=== PATIENT | male | born 1975 | race African-American/Black ===

== ENCOUNTER 2018-01-12 13:46 | Emergency (ER) | payer MEDICAID, OTHER ==
[~2018-01-12] VITALS: Ht 172.7 cm; Wt 96.2 kg
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
[2018-01-12 15:25] VITALS: BP 127/83
[2018-01-12] MEDS ORDERED: IBUPROFEN600 MG ORAL (15:26)
[2018-01-12] MEDS ORDERED: ROBAXIN500 MG PO (15:26)
[2018-01-12 15:29] VITALS: BP 127/83
--- NOTE | 2018-01-12 16:34 | Diagnostic Imaging Report ---
Indication: Pain Technique: 3 views right hand Comparison: none Findings: No acute fractures. No dislocations. The joint spaces are preserved. 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
--- NOTE | 2018-01-12 16:36 | Diagnostic Imaging Report ---
Indication: Reason For Exam: PAIN Technique: 3 views of the right middle finger Comparison: none Findings: No acute fractures. No dislocations. The joint spaces are preserved. Impression: Negative
== END 2018-01-12 15:29 | disposition home or self-care (01) ==
LOC: EMR 14:26
DX: M62.830 Muscle spasm of back (principal); S80.02XA Contusion of left knee, initial encounter; S80.01XA Contusion of right knee, initial encounter; V43.52XA Car driver injured in collision with other type car in traffic accident, initial encounter; Y92.410 Unspecified street and highway as the place of occurrence of the external cause; S63.601A Unspecified sprain of right thumb, initial encounter; S63.612A Unspecified sprain of right middle finger, initial encounter; S63.614A Unspecified sprain of right ring finger, initial encounter; X58.XXXA Exposure to other specified factors, initial encounter; Y92.9 Unspecified place or not applicable
CPT/HCPCS: 99284

== ENCOUNTER 2019-01-03 10:18 | Emergency (ER) | payer OTHER ==
[~2019-01-03] VITALS: Ht 172.7 cm; Wt 88.5 kg
[~2019-01-03 10:18] MED LIST: IBUPROFEN600 MG ORAL; ROBAXIN500 MG PO
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
[2019-01-03 10:38] VITALS: BP 141/88
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
[2019-01-03] MEDS ORDERED: IBUPROFEN600 MG ORAL (11:04)
[2019-01-03] MEDS ORDERED: ROBAXIN-750750 MG PO (11:04)
--- NOTE | 2019-01-03 11:25 | NUR ---
ER DISCHARGE NOTE: Patient is cleared to be discharged per ERMD, pt is aox4, on room air, with stable vital signs. pt was given dc and prescription instructions, pt was able to verbalize understanding, pt id band removed without complications. pt is able to ambulate with steady gait. pt took all belongings.
== END 2019-01-03 11:25 | disposition home or self-care (01) ==
LOC: EMR 11:05
DX: M54.5 Low back pain (principal); V43.52XA Car driver injured in collision with other type car in traffic accident, initial encounter; Y92.410 Unspecified street and highway as the place of occurrence of the external cause
CPT/HCPCS: 99282

== ENCOUNTER 2019-03-21 20:09 | Emergency (ER) | payer OTHER ==
[~2019-03-21] VITALS: Ht 175.3 cm; Wt 88.5 kg
[~2019-03-21 20:09] MED LIST changes: +ROBAXIN-750750 MG PO
[2019-03-21 20:31] VITALS: BP 148/99
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
[2019-03-21] MEDS ORDERED: Ketorolac 60mg Inj IM ONE (20:45)
[2019-03-21] MEDS ORDERED: Acetaminophen 500mg (ES) tab ORAL ONE (20:45)
[2019-03-21] MEDS ORDERED: ROBAXIN-750750 MG PO (20:49)
[2019-03-21] MEDS ORDERED: NAPROXEN250 MG ORAL (20:49)
[2019-03-21] MEDS ORDERED: LIDODERM700 M1 TOPIC (20:49)
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
--- NOTE | 2019-03-21 20:56 | NUR ---
ED Nurse Note: PT REFUSED TORADOL IM. EXPLAINED RISK AND BENEFITS. NOTIFIED.
[2019-03-21 21:10] VITALS: BP 140/90
--- NOTE | 2019-03-21 21:10 | NUR ---
ED Nurse Note: Pt cleared by ermd for discharge. DC instructions/prescription was given and explained to pt and verbalized understanding of teachings. All medical deviecs such as ID band removed. Pt is AAO x4, ambulatory and left with all personal belongings.
== END 2019-03-21 21:10 | disposition home or self-care (01) ==
LOC: EMR 20:45
DX: S30.0XXA Contusion of lower back and pelvis, initial encounter (principal); F19.10 Other psychoactive substance abuse, uncomplicated; V43.52XA Car driver injured in collision with other type car in traffic accident, initial encounter; Y92.410 Unspecified street and highway as the place of occurrence of the external cause
CPT/HCPCS: 96372; 99283